=== PATIENT | female | born 1980 | race Caucasian/White ===

== ENCOUNTER 2017-06-21 12:57 | Emergency (ER) | payer OTHER ==
[2017-06-21] MEDS ORDERED: diphenhydrAMINE HCL 50 MG/ML VIAL IV ONE (13:37)
[2017-06-21] MEDS ORDERED: METOCLOPRAMIDE HCL 5 MG/ML VIAL IV ONE (13:37)
[2017-06-21] MEDS ORDERED: PROMETHAZINE HCL 12.5 MG in DEXTROSE 5 % IN WATER 50 ML IV ONE ×2 (13:48)
[2017-06-21] MEDS ORDERED: PROMETHAZINE HCL 25 MG/ML AMPUL ONE (13:49)
--- NOTE | 2017-06-21 13:49 | ERNOTE ---
Medical Problem HPI - General Chief Complaint: General Assessment Time Seen by Provider: 06/21/17 13:16 Source: patient, family Exam Limitations: no limitations - Immun/Allergies/Home Medications Immunizations: IMMUNIZATION HX Immunizations Up to Date Yes History of Influenza Vaccine No Hx Pneumococcal Vaccination Yes Allergies/Adverse Reactions: Allergies cephalexin monohydrate [From Keflex] Allergy (Severe, Verified 06/21/17 13:50) Anaphylaxis nitrofurantoin [From Macrobid] Allergy (Severe, Verified 06/21/17 13:50) Anaphylaxis nitrofurantoin macrocrystalline [From Macrobid] Allergy (Severe, Verified 13:50) Anaphylaxis ondansetron HCl [From Zofran] Allergy (Severe, Verified 06/21/17 13:50) Anaphylaxis pineapple [Pineapple] Allergy (Severe, Verified 06/21/17 13:50) Anaphylaxis povidone-iodine [From Betadine] Allergy (Severe, Verified 06/21/17 13:50) Anaphylaxis prochlorperazine edisylate [From Compazine] Allergy (Severe, Verified 06/21/17 13:50) CLOSED AIRWAY prochlorperazine maleate [From Compazine] Allergy (Severe, Verified 06/21/17 13: 50) CLOSED AIRWAY soap [From Betadine] Allergy (Severe, Verified 06/21/17 13:50) Anaphylaxis sulfamethoxazole [From Bactrim] Allergy (Severe, Verified 06/21/17 13:50) Swelling of Throat trimethoprim [From Bactrim] Allergy (Severe, Verified 06/21/17 13:50) Swelling of Throat Fish Containing Products Allergy (Intermediate, Verified 06/21/17 13:50) SWELLING any type of seafood. shellfish derived Allergy (Intermediate, Verified 06/21/17 13:50) SWELLING latex Allergy (Mild, Verified 06/21/17 13:50) RASH Penicillins Allergy (Mild, Verified 06/21/17 13:50) Hives diphenhydramine [From Benadryl] Allergy (Verified 06/21/17 13:50) tramadol Allergy (Verified 06/21/17 13:50) vancomycin Allergy (Verified 06/21/17 13:50) metoclopramide HCl [From Reglan] Adverse Reaction (Intermediate, Verified 13:50) MENTAL CHANGES, RASH adhesive Adverse Reaction (Mild, Verified 06/21/17 13:50) RASH ciprofloxacin [From Cipro] Adverse Reaction (Mild, Verified 06/21/17 13:50) Nausea ciprofloxacin HCl [From Cipro] Adverse Reaction (Mild, Verified 06/21/17 13:50) Nausea ketorolac tromethamine [From Toradol] Adverse Reaction (Verified 06/21/17 13:50) coconut Allergy (Severe, Uncoded 06/21/17 13:50) Anaphylaxis Home Medications: HOME MEDICATIONS Diazepam 5 mg PO QID 07/21/16 [Last Taken Unknown] Promethazine HCl [Phenergan Syrup] 50 mg PO Q4H 07/21/16 [Last Taken Unknown] oxyCODONE HCL [Roxicodone solution] 20 mg PO Q3H 07/21/16 [Last Taken Unknown] fentaNYL [Duragesic] 75 mcg TD Q72H 06/21/17 [Last Taken Unknown] predniSONE [Deltasone] 20 mg PO BID #10 tablet 06/21/17 [Last Taken Unknown] - History of Present History Narrative: Patient presents with pain from the previous ostomy site on the left side of the abdomen that has been healing poorly. She states approximately one week ago she had the wound VAC taken off and now is having some pain around the site with bleeding and clotting. She states this is a chronic problem that has happened multiple times is in the room and he concurs. There remained concern is that could there be some form of infection and patient become anemic from all the bleeding. She rates her pain as moderate in intensity. Timing: intermittent Severity: moderate Review of Systems - Review of Systems Constitutional: Present: See HPI EYE: Present: no symptoms reported ENT: Present: no symptoms reported Respiratory: Present: no symptoms reported Cardiology: Present: no symptoms reported Gastrointestinal/Abdominal: Present: See HPI, nausea, abdominal pain Genitourinary: Present: no symptoms reported Musculoskeletal: Present: no symptoms reported Skin: Present: no symptoms reported Neurological: Present: no symptoms reported Endocrine: Present: no symptoms reported Hematologic/Lymphatic: Present: no symptoms reported Psych: Present: no symptoms reported - Patient's Past Medical History Patient History - Medical: Chronic Pain, Other Patient History - Cardiac/Respiratory: Pulmonary Embolism Patient History - Cancer: Bladder, Breast, Colon, Stomach Patient History - Surgical Procedures: Appendectomy, Back Surgery, Cancer Surgery, Cholecystectomy, Colon Resection, Colonoscopy, D & C, EGD, T & A, Other Patient History - Other: None - Family History Father Family History - Medical: Diabetes Type 2 - Social History Living Situations: significant other Abuse History: No History of abuse Psych History: Hx of Anxiety Alcohol Use: none Drug Use: none - Immunizations Immunizations Up to Date: Yes Hx Pneumococcal Vaccination: Yes History of Influenza Vaccine: No Physical Exam - Physical Exam General Appearance: Present: wd/wn, alert, moderate distress Head Exam: Present: normal inspection Eye Exam: Normal inspection: bilateral, PERRL: bilateral Ears, Nose, Throat: Present: normal ENT inspection, H, normal pharynx Neck: Present: normal inspection, nontender Respiratory: Present: no respiratory distress, normal breath sounds, no accessory muscle use, chest nontender, lungs clear Cardiovascular/Chest: Present: regular rate, rhythm, no murmur, normal peripheral pulses Gastrointestinal/Abdominal: Present: normal bowel sounds, nontender, nondistended, soft, no organomegaly, tenderness, other - bleeding with clots is noted from the previous ostomy site. Rectal Exam: Present: deferred Back Exam: Present: normal inspection, normal range of motion Extremity Exam: Present: normal inspection, non-tender, no edema, normal range of motion Neurological Exam: Present: alert, oriented, normal mood/affect Skin Exam: Present: normal color, warm/dry Lymphatic Exam: Present: no adenopathy ED Progress - Results and Orders Patient's Lab Results:: I have reviewed the patient's lab results. - Vital Signs Patient's Vital Signs:: I have reviewed the patient's vital signs. Vital Signs: Vital Signs 06/21/17 13:06 Temperature 36.4 C L Pulse Rate 122 H Respiratory 12 Rate Blood Pressure 123/79 O2 Sat by Pulse 99 Oximetry - X-Ray X-Ray #1 X-Ray: chest Interpretation: Reviewed by me - Progress/Reassessment Chief Complaint: General Assessment Plan - Plan Plan: Overall after going over all the labs with the patient and her these appear to be fairly stable labs. I'm somewhat reluctant to give the patient nonsteroidals that she has profound allergies however she may benefit from some prednisone for her pleurisy. Patient agrees to give her family physician electric motor control assembler at [facility] for any ongoing treatment recommendations. Patient will be sent home with something for incentive spirometry to help reinflate what appears to be atelectasis. I do not suspect pneumonia at this juncture as the patient is afebrile, has a normal white count and no definitive Rales can be found on auscultation Departure - Departure Clinical Impression: Chronic abdominal pain, Pleurisy Disposition: Home self-care Condition: Good Instructions: Pleurisy, [id number], Abdominal Pain, Adult, [id number] Prescriptions: predniSONE [Deltasone] 20 mg PO BID #10 tablet
[2017-06-21 14:51] LABS: Hematocrit 29.1 % (37.0-47.0); Hemoglobin 9.4 gm/dL (12.5-16.0); Mean Cell Volume 78.9 fl (78-100); Mean Corpuscular Hemoglobin 25.5 pg (27-31); Mean Corpuscular Hgb Conc 32.3 g/dl (32-36); Mean Platelet Volume 11.4 fl (6.0-9.5); Neutrophil # 4.5 K/mm3 (1.3-6.0); Neutrophil % 70.2 % (42-75.0); Platelet Count 218 K/mm3 (150-450); Red Blood Count 3.69 M/mm3 (4.2-5.4); Red Cell Distribution Width 16.9 % (11.5-14.0); White Blood Count 6.4 K/mm3 (4.0-10.5)
[2017-06-21] MEDS ORDERED: NORMAL SALINE 1,000 ML IV ONE (15:00)
[2017-06-21] MEDS ORDERED: HYDROmorphone HCL 1 MG/ML DISP.SYRIN ONE (15:01)
[2017-06-21] MEDS ORDERED: HYDROmorphone HCL 1 MG/ML DISP.SYRIN IV ONE (15:01)
[2017-06-21 15:26] LABS: ALT 25 U/L (19-67); AST 21 U/L (0-48); Albumin * 3.1 gm/dl (3.4-5.0); Alkaline Phosphatase * 107 U/L (50-170); Anion Gap 17.1 mmol/L (6.8-13.8); BUN/Creatinine Ratio 21.9 (9.0-21.6); Bilirubin, Total 0.3 mg/dL (0.0-1.1); Blood Urea Nitrogen 23 mg/dL (3-23); Ca. Corrected For Albumin 10.1 mg/dL (8.4-10.2); Calcium * 9.7 mg/dL (7.9-10.9); Carbon Dioxide 24.8 mmol/L (24-32.6); Chloride 98 mmol/L (97-106); Glucose * 109 mg/dL (70-110); Lipase 79 U/L (73-393); Magnesium 1.8 mg/dL (1.2-2.8); Potassium 3.9 mmol/L (3.4-4.6); Sodium 136 mmol/L (132-142); Total Protein 8.3 gm/dL (6.2-8.2); Troponin I Less than 0.017 ng/ml (0.00-0.10)
[2017-06-21 15:47] VITALS: BP 110/72
== END 2017-06-21 16:09 | disposition home or self-care (01) ==
LOC: ER 12:57
DX: Z85.3 Personal history of malignant neoplasm of breast (principal); Z85.51 Personal history of malignant neoplasm of bladder; Z85.038 Personal history of other malignant neoplasm of large intestine; Z85.028 Personal history of other malignant neoplasm of stomach

== ENCOUNTER 2017-06-22 15:28 | Emergency (ER) | payer OTHER ==
[2017-06-22 16:08] LABS: Hemoglobin 8.4 gm/dL (12.5-16.0); Mean Cell Volume 79.8 fl (78-100); Mean Corpuscular Hemoglobin 25.8 pg (27-31); Mean Corpuscular Hgb Conc 32.3 g/dl (32-36); Mean Platelet Volume 10.6 fl (6.0-9.5); Neutrophil % 74.3 % (42-75.0); Platelet Count 203 K/mm3 (150-450); Red Blood Count 3.26 M/mm3 (4.2-5.4); Red Cell Distribution Width 16.9 % (11.5-14.0); White Blood Count 6.8 K/mm3 (4.0-10.5)
[2017-06-22] MEDS ORDERED: HYDROmorphone HCL 1 MG/ML DISP.SYRIN ONE (16:08)
[2017-06-22] MEDS: HYDROmorphone HCL 1 MG/ML DISP.SYRIN IV ONE (16:09)
[2017-06-22 16:18] LABS: Anion Gap 14.3 mmol/L (6.8-13.8); BUN/Creatinine Ratio 16.1 (9.0-21.6); Calcium * 8.8 mg/dL (7.9-10.9); Carbon Dioxide 24.2 mmol/L (24-32.6); Estimated Creat Clear 93.4; Potassium 3.5 mmol/L (3.4-4.6)
--- NOTE | 2017-06-22 17:31 | ERNOTE ---
Medical Problem HPI - General Chief Complaint: General Assessment Time Seen by Provider: 06/22/17 15:37 Source: patient, family - Immun/Allergies/Home Medications Immunizations: IMMUNIZATION HX Immunizations Up to Date Yes History of Influenza Vaccine No Hx Pneumococcal Vaccination Yes Allergies/Adverse Reactions: Allergies cephalexin monohydrate [From Keflex] Allergy (Severe, Verified 06/22/17 15:40) Anaphylaxis nitrofurantoin [From Macrobid] Allergy (Severe, Verified 06/22/17 15:40) Anaphylaxis nitrofurantoin macrocrystalline [From Macrobid] Allergy (Severe, Verified 15:40) Anaphylaxis ondansetron HCl [From Zofran] Allergy (Severe, Verified 06/22/17 15:40) Anaphylaxis pineapple [Pineapple] Allergy (Severe, Verified 06/22/17 15:40) Anaphylaxis povidone-iodine [From Betadine] Allergy (Severe, Verified 06/22/17 15:40) Anaphylaxis prochlorperazine edisylate [From Compazine] Allergy (Severe, Verified 06/22/17 15:40) CLOSED AIRWAY prochlorperazine maleate [From Compazine] Allergy (Severe, Verified 06/22/17 15: 40) CLOSED AIRWAY soap [From Betadine] Allergy (Severe, Verified 06/22/17 15:40) Anaphylaxis sulfamethoxazole [From Bactrim] Allergy (Severe, Verified 06/22/17 15:40) Swelling of Throat trimethoprim [From Bactrim] Allergy (Severe, Verified 06/22/17 15:40) Swelling of Throat Fish Containing Products Allergy (Intermediate, Verified 06/22/17 15:40) SWELLING any type of seafood. shellfish derived Allergy (Intermediate, Verified 06/22/17 15:40) SWELLING latex Allergy (Mild, Verified 06/22/17 15:40) RASH Penicillins Allergy (Mild, Verified 06/22/17 15:40) Hives diphenhydramine [From Benadryl] Allergy (Verified 06/22/17 15:40) tramadol Allergy (Verified 06/22/17 15:40) vancomycin Allergy (Verified 06/22/17 15:40) metoclopramide HCl [From Reglan] Adverse Reaction (Intermediate, Verified 15:40) MENTAL CHANGES, RASH adhesive Adverse Reaction (Mild, Verified 06/22/17 15:40) RASH ciprofloxacin [From Cipro] Adverse Reaction (Mild, Verified 06/22/17 15:40) Nausea ciprofloxacin HCl [From Cipro] Adverse Reaction (Mild, Verified 06/22/17 15:40) Nausea ketorolac tromethamine [From Toradol] Adverse Reaction (Verified 06/22/17 15:40) coconut Allergy (Severe, Uncoded 06/22/17 15:40) Anaphylaxis Home Medications: HOME MEDICATIONS Diazepam 5 mg PO QID 07/21/16 [Last Taken Unknown] Promethazine HCl [Phenergan Syrup] 50 mg PO Q4H 07/21/16 [Last Taken Unknown] oxyCODONE HCL [Roxicodone solution] 20 mg PO Q3H 07/21/16 [Last Taken Unknown] fentaNYL [Duragesic] 75 mcg TD Q72H 06/21/17 [Last Taken Unknown] predniSONE [Deltasone] 20 mg PO BID #10 tablet 06/21/17 [Last Taken Unknown] Doxycycline Monohydrate 100 mg PO BID #28 tablet 06/22/17 [Last Taken Unknown] - History of Present History Narrative: Patient presents with continuing pleuritic pain in the right chest wall. She is also continuing to have low-grade oozing blood from the previous surgical wound in the left lower abdomen. She rates the pain as at least moderate in intensity and pleuritic in nature. She has pain with nearly every breath, however the pain from the lower abdomen simply is persistent since her discharge from the [facility] in [place]. Timing: constant Severity: moderate Review of Systems - Review of Systems Constitutional: Present: See HPI EYE: Present: no symptoms reported ENT: Present: no symptoms reported Respiratory: Present: other - pleuritic chest pain Cardiology: Present: no symptoms reported Gastrointestinal/Abdominal: Present: See HPI - continuing low-grade pain around the previous stoma site with oozing of blood Genitourinary: Present: no symptoms reported Musculoskeletal: Present: no symptoms reported Skin: Present: no symptoms reported Neurological: Present: no symptoms reported Endocrine: Present: no symptoms reported Hematologic/Lymphatic: Present: no symptoms reported Psych: Present: no symptoms reported - Patient's Past Medical History Patient History - Medical: Chronic Pain, Other Patient History - Cardiac/Respiratory: Pulmonary Embolism Patient History - Cancer: Bladder, Breast, Colon, Stomach Patient History - Surgical Procedures: Appendectomy, Back Surgery, Cancer Surgery, Cholecystectomy, Colon Resection, Colonoscopy, D & C, EGD, T & A, Other Patient History - Other: None - Family History Father Family History - Medical: Diabetes Type 2 - Social History Living Situations: home Abuse History: No History of abuse Psych History: Hx of Anxiety Alcohol Use: none Drug Use: none - Immunizations Immunizations Up to Date: Yes Hx Pneumococcal Vaccination: Yes History of Influenza Vaccine: No Physical Exam - Physical Exam General Appearance: Present: wd/wn, alert, moderate distress Eye Exam: Normal inspection: bilateral, PERRL: bilateral Ears, Nose, Throat: Present: normal ENT inspection, H, normal pharynx Neck: Present: normal inspection, nontender Respiratory: Present: normal breath sounds, no accessory muscle use, chest nontender, lungs clear, respiratory distress, other - Friction rub Cardiovascular/Chest: Present: regular rate, rhythm, no murmur, normal peripheral pulses Gastrointestinal/Abdominal: Present: normal bowel sounds, nontender, nondistended, soft, no organomegaly Rectal Exam: Present: deferred Back Exam: Present: normal inspection, normal range of motion Extremity Exam: Present: normal inspection, non-tender, no edema, normal range of motion Neurological Exam: Present: alert, oriented, normal mood/affect Skin Exam: Present: normal color, warm/dry Lymphatic Exam: Present: no adenopathy ED Progress - Results and Orders Patient's Lab Results:: I have reviewed the patient's lab results. - Vital Signs Patient's Vital Signs:: I have reviewed the patient's vital signs. Vital Signs: Vital Signs 06/22/17 06/22/17 15:33 16:55 Temperature 37.1 C Pulse Rate 134 H 110 H Respiratory 12 12 Rate Blood Pressure 109/60 109/56 O2 Sat by Pulse 95 97 Oximetry - CT/Ultrasound CT/Ultrasound Narrative: Chest CT was reviewed - Progress/Reassessment Chief Complaint: General Assessment Progress:: Improved Plan - Plan Plan: Given all the underlying complications from this patient's multiple surgeries she is always difficult to treat. Patient was seen here yesterday and the only medication available for the pleuritic chest pain of prednisone. Because the patient return with persistent pain I decided to undertake a chest CT to rule out pulmonary embolus, and while no PE was found patient did have several nodules present in both lungs. We have to entertain the possibility of other chronic pulmonary nodule, we will start the patient on antibiotics and be told her that she needed to have a repeat CT in 6-8 weeks. As the patient is continuing to have bleeding from the open wound in the left lower abdomen following the reversal of the stoma at the [facility], we will have the patient follow up with the wound clinic to see whether they can assist in the evolution of this care. The told me that at one point this wound was roughly 2 inches or more deep and the wound VAC was applied at the [facility] which helped some up to a point. As the patient is continuing to ooze blood from there and we've had dropped her hemoglobin from yesterday I feel as though we need to get the wound clinic involved to see if we can help this open wound heal quicker, so as to minimize any further blood loss. The states they have reasonable in medicine at home and we discussed that the pleuritic chest pain could be from this possible irritated and infected nodule in the lung. Patient and were told that we need to get back involved with the family physician and there would be imperative that [facility] apprised of all the ongoing complications from her surgery there. Patient will be started on doxycycline as well as to entertain possible mycoplasma is the underlying etiology for the possible necrotic nodule. Departure - Departure Clinical Impression: Pleurisy, Lung nodule < 6cm on CT Disposition: Home self-care Condition: Good Instructions: Pulmonary Nodule, [id number], Pleurisy, [id number] Prescriptions: Doxycycline Monohydrate 100 mg PO BID #28 tablet
[2017-06-22 17:56] VITALS: BP 113/61
== END 2017-06-22 17:59 | disposition home or self-care (01) ==
LOC: ER 15:28
DX: R09.1 Pleurisy (principal); R91.1 Solitary pulmonary nodule; Z85.51 Personal history of malignant neoplasm of bladder; Z85.3 Personal history of malignant neoplasm of breast; Z85.038 Personal history of other malignant neoplasm of large intestine; Z85.028 Personal history of other malignant neoplasm of stomach; Z86.711 Personal history of pulmonary embolism